=== PATIENT | female | born 1955 | race Caucasian/White ===

== ENCOUNTER 2024-05-08 09:00 | Outpatient (CLI) | payer MEDICARE, SELFPAY ==
[2024-05-08 11:09] LABS: Alanine Aminotransferase 33 U/L (6-35); Albumin Level 3.8 g/dL (3.5-5.1); Alkaline Phosphatase 92 U/L (38-126); Anion Gap 7 mmol/L (4-12); Aspartate Amino Transferase 57 U/L (14-36); Bilirubin,Total 0.4 mg/dL (0.2-1.3); Blood Urea Nitrogen 12 mg/dL (7-17); Calcium 8.3 mg/dL (8.4-10.2); Carbon Dioxide 29 mmol/L (22-30); Chloride 100 mmol/L (98-107); Cholesterol 121 mg/dL (0-200); Estimated Glomerular Filt Rate > 60; Glucose 115 mg/dL (65-110); HDL Direct 43 mg/dL; Potassium 3.2 mmol/L (3.4-5.0); Sodium 136 mmol/L (137-145); Triglycerides 91 mg/dL (<150)
[2024-05-08 11:19] LABS: LDL Cholesterol Direct 56 mg/dL
[2024-05-08 11:43] LABS: Parathyroid Intact 109.3 pg/mL (14.5-75.2)
[2024-05-09 10:23] LABS: Ionized Calcium 4.6 mg/dL (4.7-5.5)
== END 2024-05-08 09:01 | disposition home or self-care (01) ==
PROVIDERS: PCP Internal Medicine; Visit Provider Internal Medicine
DX: R53.83 Other fatigue (principal); R73.03 Prediabetes; E78.5 Hyperlipidemia, unspecified; E03.9 Hypothyroidism, unspecified
CPT/HCPCS: 36415; 80053; 80061; 82330; 83036; 83970; 84443

== ENCOUNTER 2024-08-01 18:27 | Emergency (ER) | payer MEDICARE, SELFPAY ==
--- NOTE | 2024-08-01 18:33 | ED_ITS ---
HPI - Wound/Laceration General Chief Complaint: Wound/Laceration Stated Complaint: RT Hand Finger Injury Time Seen by Provider: 08/01/24 18:48 Source: patient, RN notes reviewed and old records reviewed Mode of arrival: ambulatory Limitations: no limitations History of Present Illness HPI narrative: 68-year-old female presents to the [facility] with an avulsion of skin to the IP joint right 1st finger. Slight bleeding noted. States occurred about 4-5 hours ago. Patient unknown last tetanus. Patient is declining tetanus shot at this time Related Data Home Medications Medication Instructions Recorded Confirmed aspirin 81 mg tablet,delayed 81 mg PO DAILY 10/06/21 08/01/24 release (Adult Aspirin Regimen) calcium carbonate 500 mg PO DAILY 10/06/21 08/01/24 dextroamphetamine-amphetamine ER 10 mg PO DAILY 10/06/21 08/01/24 10 mg 24hr capsule,extend release dextroamphetamine-amphetamine ER 20 mg PO DAILY 10/06/21 08/01/24 20 mg 24hr capsule,extend release ergocalciferol (vitamin D2) 1,250 1,250 mcg PO WEEKLY 10/06/21 08/01/24 mcg (50,000 unit) capsule (Vitamin D2) multivitamin with iron (Daily 1 tablet PO DAILY 10/06/21 08/01/24 Multiple Vitamins with Iron tablet) quetiapine 400 mg tablet 400 mg PO QHS 10/06/21 08/01/24 Allergies Allergy/AdvReac Type Severity Reaction Status Date / Time celecoxib Allergy Mild itching Verified 04/05/24 08:31 clarithromycin [From Biaxin] Allergy Mild Itching Verified 04/05/24 08:31 metronidazole [From Flagyl] Allergy Mild Rash Verified 04/05/24 08:31 Penicillins Allergy Mild Rash Verified 04/05/24 08:31 Sulfa (Sulfonamide Allergy Mild Rash Verified 04/05/24 08:31 Antibiotics) Review of Systems Review of Systems: All systems reviewed & are unremarkable except as noted in HPI and below Constitutional: Constitutional: Reports no additional constitutional complaints ENT: Reports system reviewed and no additional complaints, except as documented Cardiovascular: Cardiovascular: Reports no additional cardiovascular complaints, Denies chest pain and Denies dyspnea Respiratory: Respiratory: Reports no additional respiratory complaints, Denies chest congestion, Denies cough and Denies dyspnea Gastrointestinal: Gastrointestinal: Reports no additional gastrointestinal complaints, Denies abdominal pain, Denies nausea and Denies vomiting Musculoskeletal: Musculoskeletal: Reports no additional musculoskeletal complaints Integumentary/Breasts: Skin/Breast: Reports as per [facility] Past Medical History Medical History Allergies Anxiety Arthritis Coronary artery disease Diabetes Heart attack Heart disease Hypertension Family History Family History Father Heart disease Grandparent Cerebrovascular accident Thyroid disorder Social History Social History Smoking status: Never smoker Second hand tobacco smoke exposure: No Alcohol intake: never Substance use: unknown Lack of Transportation: No Lack of Food: Never True Current Housing: I Have Housing Concerned About Future Housing: No Difficulty Paying Gas/Electric Bills: No Difficulty Paying for Meds: No Currently Unemployed: Decline to Answer Education: High School Diploma/GED Difficulty w/ Childcare or Family Care: No Comments At the time of my signature, I reviewed and agree with the nursing past medical, surgical, social, and family history. There is no relevant family history pertinent to the patient complaint. Exam Const: General: cooperative, healthy appearing, comfortable, no acute distress, well developed, alert and well nourished Nutritional Appearance: well nourished Orientation/consciousness: patient oriented x3 Limitations: no limitations HENMT: Head: normal to inspection Ears: hearing grossly normal bilaterally and external ears normal Face/Nose/Sinus: Normal external nose present, normal facial exam and face symmetric Face and sinus: normal facial exam and face symmetric Eyes: General: appearance normal, both eyes and all related structures Alignment and Position: alignment normal Periorbital: periorbital findings normal Neck: Neck: normal visual inspection, full ROM, no lymphadenopathy and no meningeal signs Chest: Chest palpation & inspection: normal inspection of the chest Resp: Effort & Inspection: normal respiratory effort and able to speak in complete sentences Cardio: Rate: regular rate Skin: General skin exam: normal color and no rashes or lesions noted Lesions: no lesions Rashes: no rashes Other: 1 by 0.5 cm avulsion of skin IP palmar a spect right hand. Cleaned area with wound cleanser. Had patient hold pressure for 30 minutes. Bleeding is contr olled, no further bleeding noted. Full range of motion is noted Neuro: General: patient oriented x3, gait normal, tone normal, moves all extremities and no meningeal signs Cognition (Neuro): normal cognition Speech: normal speech Gait exam (Neuro): Normal gait present Extrem: General: normal to inspection, full ROM, capillary refill normal and normal gait Psych: Appearance: grossly normal and well kempt Mental Status: mental status grossly normal Speech and movement: Normal speech and movement present and Clear speech present Affect: normal affect Attitude: cooperative Course Course Level of Care: Express Care Visit Vital Signs Vital signs: Vital Signs Temperature 97.2 F L 08/01/24 18:39 Pulse Rate 120 H 08/01/24 18:39 Respiratory Rate 18 08/01/24 18:39 Blood Pressure 121/80 08/01/24 18:39 Pulse Oximetry 98 08/01/24 18:39 Oxygen Delivery Room Air 08/01/24 18:39 Temperature 97.2 F L 08/01/24 18:39 Pulse Rate 120 H 08/01/24 18:39 Respiratory Rate 18 08/01/24 18:39 Blood Pressure 121/80 08/01/24 18:39 Pulse Oximetry 98 08/01/24 18:39 Oxygen Delivery Room Air 08/01/24 18:39 Reviewed MDM - Wound/Laceration MDM Narrative Medical decision making narrative: Patient unsure of last tetanus, advised patient for tetanus shot which she declined at this time. Had patient hold direct pressure for approximately 30 minutes, bleeding is controlled. Patient with avulsion of skin. Patient is nontoxic, vitals are stable except pulse mildly elevated. Patient reports that she has been nervous. Patient appropriate for outpatient treatment and follow-up after bleeding is controlled Discharge instructions reviewed with patient, as well as provided in writing per nursing staff. The instructions also include specific and strict return/GO TO THE ER as well as f/u information. All questions have been answered, and the patient deny any further questions with discharge and discharge plan. Some parts of this dictation were generated by voice recognition software and may contain typographical and/or grammatical inaccuracies. Differential Diagnosis Differential diagnosis: Likely laceration, abscess, abrasion and avulsion of skin Critical Care Time Critical Care Time Critical Care Time: No Discharge Plan Discharge Clinical Impression: Avulsion of skin of finger Patient Disposition: Home, Self-Care Condition: Stable Instructions: Skin Avulsion (ED) Additional Instructions: Keep covered for 24 hours. After 24 hours wash area with soapy water, pat dry and reapply dressing. Try leaving open to air for minimum of 3-4 hours per day. When not at home please keep it covered. Follow-up with your primary care provider For new or worsening symptoms go directly to the emergency room Patient Language: French Prescriptions: No Action multivitamin with iron [Daily Multiple Vitamins/Iron] Tablet 1 tablet PO DAILY quetiapine 400 mg tablet 400 mg PO QHS ergocalciferol (vitamin D2) [Vitamin D2] 1,250 mcg (50,000 unit) capsule 1,250 mcg PO WEEKLY aspirin [Adult Aspirin Regimen] 81 mg tablet,delayed release (DR/EC) 81 mg PO DAILY dextroamphetamine-amphetamine 10 mg capsule,extended release 24hr 10 mg PO DAILY dextroamphetamine-amphetamine 20 mg capsule,extended release 24hr 20 mg PO DAILY calcium carbonate 500 mg calcium (1,250 mg) tablet 500 mg PO DAILY atorvastatin 40 mg tablet 40 mg PO DAILY Qty: 90 1RF metoprolol tartrate 25 mg tablet 25 mg PO BID Qty: 180 1RF potassium chloride 20 mEq tablet extended release 60 meq PO DAILY Qty: 270 1RF (DME) blood-glucose meter [Contour Next EZ Meter] Kit See Rx Instructions .Route Qty: 1 1RF Rx Instructions: As directed (DME) Contour Next Test Strips Strip See Rx Instructions .Route Qty: 50 3RF Rx Instructions: As directed furosemide 20 mg tablet 40 mg PO QAM Qty: 180 1RF Follow-up/Referrals: PHYSICIAN,TYPE INSPECTOR [Primary Care Provider] - Stand Alone Forms: Work/School Release IP Time of Disposition: 19:28
[2024-08-01 18:39] VITALS: BP 121/80; PULSE 120; RESP 18; TEMP 36.2; O2SAT 98
== END 2024-08-01 19:37 | disposition home or self-care (01) ==
PROVIDERS: Emergency Provider Nurse Practitioner
DX: S61.200A Unspecified open wound of right index finger without damage to nail, initial encounter (principal); X58.XXXA Exposure to other specified factors, initial encounter; I25.10 Atherosclerotic heart disease of native coronary artery without angina pectoris; E11.9 Type 2 diabetes mellitus without complications; I10 Essential (primary) hypertension; M19.90 Unspecified osteoarthritis, unspecified site; I25.2 Old myocardial infarction; Z79.82 Long term (current) use of aspirin
CPT/HCPCS: 99212; G0463

== ENCOUNTER 2025-03-28 13:49 | Outpatient (CLI) | payer MEDICARE, SELFPAY ==
--- NOTE | ~2025-03-28 | MM_ITS ---
EXAMINATION: MM screening melina BI w deyanira HISTORY: Screening TECHNIQUE: Craniocaudal and mediolateral oblique 3-D tomosynthesis images were obtained and synthetic 2-D images were generated. CAD analysis was submitted and interpreted. COMPARISON: No prior mammogram is available for comparison at this institution. BREAST PARENCHYMAL COMPOSITION: Not dense: There are scattered areas of fibroglandular density. FINDINGS: There is no evidence of suspicious mass, calcification, or architectural distortion to sugg est malignancy in either breast. There has been no suspicious interval change. IMPRESSION: 1. No mammographic evidence of malignancy. 2. Recommend routine screening mammography in one year. BI-RADS Category 1: Negative Reviewed, dictated and finalized at location A.
== END 2025-03-28 13:50 | disposition home or self-care (01) ==
PROVIDERS: PCP Student in an Organized Health Care Education/Training Program; Visit Provider Student in an Organized Health Care Education/Training Program
DX: Z12.31 Encounter for screening mammogram for malignant neoplasm of breast (principal)
CPT/HCPCS: 77063; 77067

== ENCOUNTER 2025-07-09 09:55 | Outpatient (CLI) | payer MEDICARE, SELFPAY ==
--- NOTE | ~2025-07-09 | US_ITS ---
Clinical history:Thyroid cyst EXAM:Ultrasound thyroid TECHNIQUE:Multiple static grayscale images and color Doppler images were obtained of the thyroid gland. Comparisons:None FINDINGS: Right thyroid lobe measures 2.5 x 1.2 x 1.0 cm is heterogeneous. Left thyroid lobe measures 2.8 x 1.0 x 1.4 cm is heterogeneous. Isthmus measures 0.3 cm is heterogeneous. There are a few subcentimeter cysts in the thyroid gland. There is a 1.9 x 4.9 x 2.1 cm anechoic structure about the left thyroid lobe. The finding is wider than tall. No internal color Doppler flow. No posterior acoustic shadowing. Margins are partially circumscribed. IMPRESSION: 1. There is a 4.9 cm indeterminant cystic structure about the left thyroid lobe. A CT of the soft tissues of the neck with contrast is recommended. 2. Thyroid gland is small and heterogeneous. There are a few subcentimeter cysts in the thyroid gland. Reviewed, dictated and finalized at location Q. IMPRESSION: 1. There is a 4.9 cm indeterminant cystic structure about the left thyroid lobe . A CT of the soft tissues of the neck with contrast is recommended. 2. Thyroid gland is small and heterogeneous. There are a few subcentimeter cyst s in the thyroid gland.
== END 2025-07-09 09:56 | disposition home or self-care (01) ==
LOC: MICIMG 09:56
PROVIDERS: PCP Student in an Organized Health Care Education/Training Program; Visit Provider Student in an Organized Health Care Education/Training Program
DX: E04.1 Nontoxic single thyroid nodule (principal)
CPT/HCPCS: 76536